=== PATIENT | female | born 1955 | race Caucasian/White ===

== ENCOUNTER 2017-02-03 21:40 | Emergency (ER) | payer OTHER ==
[~2017-02-03] VITALS: Ht 160 cm; Wt 78.2 kg
[~2017-02-03 21:40] MED LIST: COUM2TAB PO; FERR324T4 PO; LORA-392 PO; PROZ20CA11 PO; RIVA20 PO; Z.0.NO CURRENT MEDS
[2017-02-03 21:51] VITALS: PULSE 71; RESP 20; TEMP 97.8; O2SAT 97
[2017-02-03] MEDS ORDERED: VENTAER INH (22:01)
[2017-02-03] MEDS ORDERED: XARE20TA PO (22:01)
[2017-02-03] MEDS ORDERED: HYDR-2376 PO (22:01)
[2017-02-03] MEDS ORDERED: UMEC1AER INH (22:01)
[2017-02-03] MEDS ORDERED: PROP10TA6 PO (22:01)
[2017-02-03] MEDS ORDERED: LURA40 PO (22:01)
--- NOTE | 2017-02-03 22:29 | PD ---
HPI Chief Complaint: Hypertension Time Seen by Provider: 22:03 Travel History International Travel<30 days: No Contact w/Intl Traveler<30days: No Traveled to known affect area: No History of Present Illness HPI 61-year-old female arrives complaining of hypertension. She took her blood pressure at home that was about 170/90. She called the [employer] nurse and she is advised to come to the ER. Patient also had vague visual/changes including black spots which resolved prior to ER arrival. No diplopia. No fever. She denies no history of hypertension and takes no antihypertensive agent. PFSH Past Medical History Hx Anticoagulant Therapy: Yes Blood Disorders: No Bipolar Disorder: Yes Anxiety: Yes Depression: Yes Genitourinary: Yes Headaches: Yes Immune Disorder: No Kidney Stones: Yes Psychiatric: Yes Respiratory: Yes Past Surgical History Abdominal Surgery: Yes (CHOLY) AICD: No Section: Yes (x6) Cholecystectomy: Yes Genitourinary Surgery: Yes (BLADDER PROLAPSE) Hysterectomy: Yes Pacemaker: No Tonsillectomy: Yes Other Surgery: Yes (Bladder prolapse repair) Social History Alcohol Use: No Tobacco Use: Yes (1.5 PPD) Substance Use: No Allergies-Medications (Allergen,Severity, Reaction): Coded Allergies: Sulfa (Verified Allergy, Intermediate, 08/26/16) "sick" Reported Meds & Prescriptions Reported Meds & Active Scripts Active Reported Hydrocodone-Acetaminophen 7.5-300 Mg Tab 1 Tab PO Q6H PRN Latuda (Lurasidone) 40 Mg Tab 40 Mg PO DAILY Ventolin Hfa 18 GM Inh (Albuterol Sulfate) 90 Mcg/Act Aer 2 Puff INH Q6H PRN Anoro Ellipta Inh (Umeclidinium/Vilanterol) 62.5-25 Mcg/Act Aero 1 Puff INH DAILY Propranolol (Propranolol HCl) 10 Mg Tab 10 Mg PO DAILY Xarelto (Rivaroxaban) 20 Mg Tab 20 Mg PO DAILY Ativan (Lorazepam) 0.5 Mg Tab 1-2 Tab PO Q6HPRN Review of Systems Except as stated in HPI: all other systems reviewed are Neg General / Constitutional: No: Fever Physical Exam Narrative GENERAL: Well-nourished well-developed 61-year-old female no acute distress SKIN: Warm and dry. HEAD: Atraumatic. Normocephalic. EYES: Pupils equal and round. No scleral icterus. No injection or drainage. ENT: No nasal bleeding or discharge. Mucous membranes pink and moist. NECK: Trachea midline. No JVD. CARDIOVASCULAR: Regular rate and rhythm. RESPIRATORY: No accessory muscle use. Clear to auscultation. Breath sounds equal bilaterally. GASTROINTESTINAL: Abdomen soft, non-tender, nondistended. Hepatic and splenic margins not palpable. MUSCULOSKELETAL: Extremities without clubbing, cyanosis, or edema. No obvious deformities. NEUROLOGICAL: Awake and alert. No obvious cranial nerve deficits. Motor grossly within normal limits. Five out of 5 muscle strength in the arms and legs. Normal speech. PSYCHIATRIC: Appropriate mood and affect; insight and judgment normal. Data Data Last Documented VS Vital Signs Date Time Temp Pulse Resp B/P Pulse Ox O2 Delivery O2 Flow Rate FiO2 02/03/17 21:51 97.8 71 20 97 MDM Medical Decision Making Medical Screen Exam Complete: Yes Emergency Medical Condition: Yes Differential Diagnosis Hypertensive emergency, hypertensive urgency, medication noncompliance, anxiety Narrative Course The patient is asymptomatic in the ER. Her blood pressure is within acceptable range. Follow-up with primary care provider. Diagnosis Primary Impression: HTN (hypertension) Qualified Code: I15.9 - Secondary hypertension Referrals: DR VENTURA 2 days Additional Instructions: You have a choice when it comes to health care, and we are glad that you chose [facility]. Hopefully, we have met your expectations on today's visit. You are welcome to return to [facility] at any time, as we are committed to meeting the health care needs of our community. Med/Other Pt SpecificInfo: No Change to Meds Disposition: 01 DISCHARGE HOME Condition: Stable Rodney Zuniga MD Feb 03, 2017 22:29
== END 2017-02-03 22:50 | disposition home or self-care (01) ==
LOC: NEPC 21:40
DX: I10 Essential (primary) hypertension (principal); F17.210 Nicotine dependence, cigarettes, uncomplicated; Z79.01 Long term (current) use of anticoagulants
CPT/HCPCS: 99284

== ENCOUNTER 2017-10-14 08:37 | Emergency (ER) | payer OTHER ==
[~2017-10-14] VITALS: Ht 170.2 cm; Wt 78.0 kg
[~2017-10-14 08:37] MED LIST changes: -COUM2TAB PO; -FERR324T4 PO; +HYDR-2376 PO; +LURA40 PO; +PROP10TA6 PO; -PROZ20CA11 PO; -RIVA20 PO; +UMEC1AER INH; +VENTAER INH; +XARE20TA PO; -Z.0.NO CURRENT MEDS
[2017-10-14 08:45] VITALS: BP 133/82; PULSE 98; RESP 18; TEMP 98; O2SAT 100
[2017-10-14] MEDS ORDERED: OMEP20TA93 PO (08:51)
[2017-10-14] MEDS ORDERED: ONDA8TAB7 PO (08:51)
[2017-10-14] MEDS ORDERED: LITH150C PO (08:51)
[2017-10-14] MEDS ORDERED: SODIUM CHLORIDE 0.9% FLUSH 10 ML FLUSH IV FLUSH PRN (09:00)
[2017-10-14] MEDS ORDERED: LIDOCAINE 2% JELLY 30 ML TUBE TOPICAL ONE (09:00)
--- NOTE | 2017-10-14 09:01 | PD ---
HPI Chief Complaint: GI Complaint Time Seen by Provider: 08:52 Travel History International Travel<30 days: No Contact w/Intl Traveler<30days: No Traveled to known affect area: No History of Present Illness HPI 62-year-old female complains of abdominal pain, rectal pain and rectal bleeding. Patient states the symptoms started yesterday. Patient states the abdominal pain is cramping pain diffuse over the abdomen. Patient denies any pain radiation. Patient started having severe rectal pain yesterday and the rectal pain got worse this morning. Patient states that she started having rectal bleeding yesterday and the bleeding is worse this morning. Patient states that she has been constipated recently. Patient states that she has been taking oral laxative with some relief of the constipation. Patient denies any headache. Patient denies any chest pain or shortness of breath. Patient denies any dysuria or frequency. Patient denies any fever chills. Patient has history of PE and on Xarelto. Patient denies a history of hypertension, diabetes, hyperlipidemia. Patient is a smoker. On a scale of 1-10 the pain is a 10. Patient status post hysterectomy, cholecystectomy. PFSH Past Medical History Hx Anticoagulant Therapy: Yes Blood Disorders: No Bipolar Disorder: Yes Anxiety: Yes Depression: Yes Diminished Hearing: No Genitourinary: Yes Headaches: Yes Immune Disorder: No Kidney Stones: Yes Psychiatric: Yes Respiratory: Yes Influenza Vaccination: Yes Past Surgical History Abdominal Surgery: Yes (CHOLY) AICD: No Section: Yes (x6) Cholecystectomy: Yes Genitourinary Surgery: Yes (BLADDER PROLAPSE) Hysterectomy: Yes Pacemaker: No Tonsillectomy: Yes Other Surgery: Yes (Bladder prolapse repair) Social History Alcohol Use: No Tobacco Use: Yes (1.5 PPD) Substance Use: No Allergies-Medications (Allergen,Severity, Reaction): Coded Allergies: Sulfa (Sulfonamide Antibiotics) (Unverified Allergy, Intermediate, ) "sick" Reported Meds & Prescriptions Reported Meds & Active Scripts Active Reported Omeprazole 20 Mg Tab 20 Mg PO DAILY Ondansetron (Ondansetron HCl) 8 Mg Tab 8 Mg PO BID [place] Carbonate 150 Mg Cap 150 Mg PO BID Ventolin Hfa 18 GM Inh (Albuterol Sulfate) 90 Mcg/Act Aer 2 Puff INH Q6H PRN Anoro Ellipta Inh (Umeclidinium/Vilanterol) 62.5-25 Mcg/Act Aero 1 Puff INH DAILY Propranolol (Propranolol HCl) 10 Mg Tab 10 Mg PO DAILY Xarelto (Rivaroxaban) 20 Mg Tab 20 Mg PO DAILY Review of Systems General / Constitutional: No: Fever Eyes: No: Visual changes HENT: No: Headaches Cardiovascular: No: Chest Pain or Discomfort Respiratory: No: Shortness of Breath Gastrointestinal: Positive: Abdominal Pain, Hematochezia Genitourinary: No: Dysuria Musculoskeletal: No: Pain Skin: No Rash Neurologic: No: Weakness Psychiatric: No: Depression Endocrine: No: Polydipsia Hematologic/Lymphatic: No: Easy Bruising Physical Exam Narrative GENERAL: Well-nourished, well-developed patient. SKIN: Focused skin assessment warm/dry. HEAD: Normocephalic. EYES: No scleral icterus. No injection or drainage. NECK: Supple, trachea midline. No JVD or lymphadenopathy. CARDIOVASCULAR: Regular rate and rhythm without murmurs, gallops, or rubs. RESPIRATORY: Breath sounds equal bilaterally. No accessory muscle use. GASTROINTESTINAL: Abdomen soft, nondistended. Mild diffuse tenderness over the abdomen. No rebound tenderness. No mass. Rectal exam shows small amount of reddish stool, no active bleeding. Large external hemorrhoid noted. Hemorrhoids is with severe tenderness on palpation. No evidence of thrombosis. Hemoccult positive. MUSCULOSKELETAL: No cyanosis, or edema. BACK: Nontender without obvious deformity. No CVA tenderness. Neurologic exam normal. Data Data Last Documented VS Vital Signs Date Time Temp Pulse Resp B/P (MAP) Pulse Ox O2 Delivery O2 Flow Rate FiO2 10/14/17 10:49 16 10/14/17 09:22 99 Room Air 10/14/17 08:45 98.0 98 133/82 (99) Orders Orders Complete Blood Count With Diff (10/14/17 08:53) Comprehensive Metabolic Panel (10/14/17 08:53) Lipase (10/14/17 08:53) Prothrombin Time / Inr (Pt) (10/14/17 08:53) Act Partial Throm Time (Ptt) (10/14/17 08:53) Urinalysis - C+S If Indicated (10/14/17 08:53) Ct Abd/Pel W Iv Contrast(Rout) (10/14/17 08:53) Iv Access Insert/Monitor (10/14/17 08:53) Ecg Monitoring (10/14/17 08:53) Oximetry (10/14/17 08:53) Sodium Chloride 0.9% Flush (Ns Flush) (10/14/17 09:00) Sodium Chlor 0.9% 1000 Ml Inj (Ns 1000 M (10/14/17 09:15) Morphine Inj (Morphine Inj) (10/14/17 09:15) Ondansetron Inj (Zofran Inj) (10/14/17 09:15) Lidocaine 2% Jelly (Xylocaine 2% Jelly) (10/14/17 09:30) Iohexol 350 Inj (Omnipaque 350 Inj) (10/14/17 10:21) Labs Laboratory Tests Test 10/14/17 09:00 10/14/17 10:00 White Blood Count 11.1 TH/MM3 Red Blood Count 4.89 MIL/MM3 Hemoglobin 15.3 GM/DL Hematocrit 45.2 % Mean Corpuscular Volume 92.5 FL Mean Corpuscular Hemoglobin 31.3 PG Mean Corpuscular Hemoglobin Concent 33.8 % Red Cell Distribution Width 13.8 % Platelet Count 173 TH/MM3 Mean Platelet Volume 10.2 FL Neutrophils (%) (Auto) 81.8 % Lymphocytes (%) (Auto) 10.0 % Monocytes (%) (Auto) 6.5 % Eosinophils (%) (Auto) 0.9 % Basophils (%) (Auto) 0.8 % Neutrophils # (Auto) 9.1 TH/MM3 Lymphocytes # (Auto) 1.1 TH/MM3 Monocytes # (Auto) 0.7 TH/MM3 Eosinophils # (Auto) 0.1 TH/MM3 Basophils # (Auto) 0.1 TH/MM3 CBC Comment DIFF FINAL Differential Comment Prothrombin Time 16.6 SEC Prothromb Time International Ratio 1.5 RATIO Activated Partial Thromboplast Time 45.0 SEC Blood Urea Nitrogen 13 MG/DL Creatinine 0.94 MG/DL Random Glucose 94 MG/DL Total Protein 7.6 GM/DL Albumin 3.6 GM/DL Calcium Level 9.2 MG/DL Alkaline Phosphatase 107 U/L Aspartate Amino Transf (AST/SGOT) 18 U/L Alanine Aminotransferase (ALT/SGPT) 17 U/L Total Bilirubin 0.6 MG/DL Sodium Level 138 MEQ/L Potassium Level 3.8 MEQ/L Chloride Level 108 MEQ/L Carbon Dioxide Level 25.7 MEQ/L Anion Gap 4 MEQ/L Estimat Glomerular Filtration Rate 61 ML/MIN Lipase 145 U/L Urine Color LIGHT-YELLOW Urine Turbidity CLEAR Urine pH 7.0 Urine Specific [place] 1.005 Urine Protein NEG mg/dL Urine Glucose (UA) NEG mg/dL Urine Ketones NEG mg/dL Urine Occult Blood MOD Urine Nitrite NEG Urine Bilirubin NEG Urine Urobilinogen LESS THAN 2.0 MG/DL Urine Leukocyte Esterase NEG Urine RBC 0-3 /hpf Urine WBC 0-2 /hpf Urine Squamous Epithelial Cells 0-5 /hpf Urine Bacteria RARE /hpf Microscopic Urinalysis Comment CULT NOT INDICATED MDM Medical Decision Making Medical Screen Exam Complete: Yes Emergency Medical Condition: Yes Interpretation(s) Last Impressions Abdomen/Pelvis CT 10/14/17 0853 Signed Impressions: Service Date/Time: Sunday, October 14, 2017 10:02 - CONCLUSION: 1. No obstruction, inflammatory changes or other acute abnormality demonstrated. 2. A few very small, benign appearing cysts of both kidneys. There are couple tiny nonobstructing stones of the left upper pole. 3. Aortoiliac atherosclerosis. No aneurysm. Hector Song MD 10:50 AM. CBC within normal limit. CMP within normal limit. INR 1.5. UA negative. Differential Diagnosis Differential diagnosis including upper GI versus lower GI bleed, hemorrhoidal bleed, colitis. Narrative Course 62-year-old female with abdominal pain, rectal pain, rectal bleeding. Examination reveals large external hemorrhoids with Hemoccult positive stool. HemaPrompt Point of Care Internal Pos. & Neg. Controls: Passed Fecal Specimen Occult Blood: Positive Diagnosis Primary Impression: Bleeding external hemorrhoids Patient Instructions: General Instructions Additional Instructions: Take medications as directed. Stool softener as directed. Sitz bath as directed. Follow-up with colorectal surgeon. Return if persistent bleeding or worse. Med/Other Pt SpecificInfo: Prescription(s) given Scripts Hydrocortisone Rectal (Anusol-Hc Rectal) 2.5% Cream 1 APPLIC RECTAL Q4-6H Y for ITCHING/INFLAMMATION, #30 GM 0 Refills Prov: Dawson Chow MD 10/14/17 Acetaminophen-Codeine (Tylenol-Codeine #3) 300-30 mg Tab 1-2 TAB PO Q6H Y for PAIN, #20 TAB 0 Refills Prov: Dawson Chow MD 10/14/17 Disposition: 01 DISCHARGE HOME Condition: Stable Dwason Chow MD Oct 14, 2017 09:01
[2017-10-14] MEDS ORDERED: MORPHINE SULFATE 2 MG/ML INJ IV PUSH ONE (09:15)
[2017-10-14] MEDS ORDERED: ONDANSETRON HCL 4 MG/2 ML VIAL IV PUSH ONE (09:15)
[2017-10-14] MEDS ORDERED: SODIUM CHLOR 0.9% 1000 ML INJ 1,000 ML IV SCH (09:15)
[2017-10-14 09:22] VITALS: RESP 16; O2SAT 99
[2017-10-14 09:25] LABS: AUTOMATED NEUTROPHIL # 9.1 TH/MM3 (1.8-7.7); BASOPHIL # 0.1 TH/MM3 (0-0.2); BASOPHIL % 0.8 % (0.0-2.0); EOSINOPHIL # 0.1 TH/MM3 (0-0.4); EOSINOPHIL % 0.9 % (0.0-4.0); HEMATOCRIT 45.2 % (35.0-46.0); HEMO FLAGS DIFF FINAL; LYMPHOCYTE # 1.1 TH/MM3 (1.0-4.8); MEAN CELL VOLUME 92.5 FL (80.0-100.0); MEAN CORPUSCULAR HEMOGLOBIN 31.3 PG (27.0-34.0); MEAN CORPUSCULAR HGB CONC 33.8 % (32.0-36.0); MONO % 6.5 % (0.0-8.0); NEUT % 81.8 % (16.0-70.0); PLATELET COUNT 173 TH/MM3 (150-450); RED BLOOD COUNT 4.89 MIL/MM3 (4.00-5.30); RED CELL DISTRIBUTION WIDTH 13.8 % (11.6-17.2); WHITE BLOOD COUNT 11.1 TH/MM3 (4.0-11.0)
[2017-10-14] MEDS ORDERED: LIDOCAINE 2% JELLY 5 ML TUBE TOPICAL ONE (09:30)
[2017-10-14 09:32] LABS: INTERNATIONAL NORMALIZED RATIO 1.5 RATIO; PROTHROMBIN TIME - PATIENT 16.6 SEC (9.8-11.6)
[2017-10-14 09:56] LABS: ANION GAP 4 MEQ/L (5-15); AST (GOT) 18 U/L (15-37); BICARBONATE 25.7 MEQ/L (21.0-32.0); BLOOD UREA NITROGEN 13 MG/DL (7-18); CHLORIDE 108 MEQ/L (98-107); GLOMERULAR FILTRATION RATE 61 ML/MIN (>89); POTASSIUM 3.8 MEQ/L (3.5-5.1); SODIUM (NA) 138 MEQ/L (136-145)
[2017-10-14 09:58] LABS: ALT (GPT) 17 U/L (10-53)
[2017-10-14 10:00] LABS: ALKALINE PHOSPHATASE 107 U/L (45-117); TOTAL BILIRUBIN ADULT 0.6 MG/DL (0.2-1.0)
[2017-10-14 10:17] LABS: BLOOD, URINE MOD (NEG); GLUCOSE,URINE NEG (NEG); KETONE, URINE NEG (NEG); NITRITE,URINE NEG (NEG); URINE COLOR LIGHT-YELLOW (YELLW/STRAW)
[2017-10-14] MEDS ORDERED: IOHEXOL 350 MG/ML 10 ML VIAL (for RAD DIAG) IVCONTRAST ONE (10:21)
[2017-10-14 10:36] LABS: RBC, URINE 0-3 /hpf (0-3); WBC, URINE 0-2 /hpf (0-5)
[2017-10-14 10:37] LABS: BACTERIA, URINE RARE /hpf; COMMENT (UR) CULT NOT INDICATED; CULTURE IF INDICATED CULT NOT INDICATED; SQUAMOUS EPITHELIAL CELL URINE 0-5 /hpf (0-5)
--- NOTE | 2017-10-14 10:39 | RADRPT ---
EXAM DATE/TIME: 10/14/2017 10:02 [facility] COMPARISON: No previous studies available for comparison. INDICATIONS : Diffuse abdomen pain today. IV CONTRAST: 72 cc Omnipaque 350 (iohexol) IV ORAL CONTRAST: No oral contrast ingested. RADIATION DOSE: 6.64 CTDIvol (mGy) MEDICAL HISTORY : bladder prolapse SURGICAL HISTORY : Hysterectomy. Cholecystectomy. ENCOUNTER: Initial ACUITY: 1 day PAIN SCALE: 8/10 LOCATION: Bilateral abdomen TECHNIQUE: Volumetric scanning of the abdomen and pelvis was performed. Using automated exposure control and ad justment of the mA and/or kV according to patient size, radiation dose was kept as low as reasonably achievable to obtain optimal diagnostic quality images. DICOM format image data is available electro nically for review and comparison. FINDINGS: LOWER LUNGS: The visualized lower lungs are clear. LIVER: Homogeneous density without lesion. There is no dilation of the biliary tree. Previous cholecystecto my. SPLEEN: Normal size without lesion. PANCREAS: Within normal limits. KIDNEYS: A few scattered subcentimeter cysts of both kidneys. Also mild patchy cortical thinning/scarring. Two 2 mm stones are seen of the left upper pole. No hydronephrosis. ADRENAL GLANDS: Within normal limits. VASCULAR: There is atherosclerosis of the abdominal aorta and iliac arteries. No aneurysm. BOWEL/MESENTERY: The stomach, small bowel, and colon demonstrate no acute abnormality. There is no free intraperitone al air or fluid. ABDOMINAL WALL: Within normal limits. RETROPERITONEUM: There is no lymphadenopathy. BLADDER: No wall thickening or mass. REPRODUCTIVE: Previous hysterectomy. No mass. No free fluid. INGUINAL: There is no lymphadenopathy or hernia. MUSCULOSKELETAL: No acute bony abnormality demonstrated. CONCLUSION: 1. No obstruction, inflammatory changes or other acute abnormality demonstrated. 2. A few very small, benign appearing cysts of both kidneys. There are couple tiny nonobstructing sto [place] of the left upper pole. 3. Aortoiliac atherosclerosis. No aneurysm. Hector Song MD on October 14, 2017 at 10:33 Board Certified Radiologist. This report was verified electronically.
[2017-10-14 10:49] VITALS: RESP 16
[2017-10-14] MEDS ORDERED: HYDR2.5%T RECTAL (10:58)
[2017-10-14] MEDS ORDERED: TYLETAB34 PO (10:58)
== END 2017-10-14 11:10 | disposition home or self-care (01) ==
LOC: NEPC 08:37
DX: K64.4 Residual hemorrhoidal skin tags (principal); N28.1 Cyst of kidney, acquired; F31.9 Bipolar disorder, unspecified; F41.9 Anxiety disorder, unspecified; F17.200 Nicotine dependence, unspecified, uncomplicated; Z87.442 Personal history of urinary calculi; Z79.899 Other long term (current) drug therapy; Z88.2 Allergy status to sulfonamides
CPT/HCPCS: 74177; 80053; 81001; 83690; 85025; 85610; 85730; 96374; 96375; 99285; J2270; J2405; J7030; Q9967

== ENCOUNTER 2018-01-03 19:18 | Emergency (ER) | payer OTHER ==
[~2018-01-03] VITALS: Ht 161.3 cm; Wt 68.6 kg
[~2018-01-03 19:18] MED LIST changes: -HYDR-2376 PO; +HYDR2.5%T RECTAL; +LITH150C PO; -LORA-392 PO; -LURA40 PO; +OMEP20TA93 PO; +ONDA8TAB7 PO; +TYLETAB34 PO
[2018-01-03 19:54] VITALS: BP 173/69; PULSE 81; RESP 16; TEMP 98.4; O2SAT 97
[2018-01-03] MEDS ORDERED: oxyCODONE/ACETAMINOPHEN 5 MG/325 MG TAB PO ONE (21:45)
--- NOTE | 2018-01-03 22:05 | PD ---
HPI Chief Complaint: Fall Time Seen by Provider: 21:22 Travel History International Travel<30 days: No Contact w/Intl Traveler<30days: No Traveled to known affect area: No History of Present Illness HPI Patient is a 62-year-old female presenting to the emergency department for evaluation of right leg pain. Patient states that she fell at approximately 6 PM this evening. She normally ambulates with a walker but it is too small to use at home so she holds onto the day. She states that her right leg just "gave out". She reports that she sat there for approximately an hour and was able to get herself off of the floor. She stated that she fell back onto her buttocks, there was no head injury, no loss of consciousness. Patient states that she has chronic pain in that leg and has decreased sensation on the lateral aspect. This is been ongoing for the last 8 years. She denies any shortness of breath, chest pain, dizziness prior to the fall. Reports her pain is 8 out of 10, she states it is sore. There are no alleviating factors, pain is somewhat exacerbated with movement. Symptom onset was sudden. PFSH Past Medical History Hx Anticoagulant Therapy: Yes Blood Disorders: No Bipolar Disorder: Yes Anxiety: Yes Depression: Yes Diminished Hearing: No Genitourinary: Yes Headaches: Yes Immune Disorder: No Kidney Stones: Yes Psychiatric: Yes Respiratory: Yes Past Surgical History Abdominal Surgery: Yes (CHOLY) AICD: No Section: Yes (x6) Cholecystectomy: Yes Genitourinary Surgery: Yes (BLADDER PROLAPSE) Hysterectomy: Yes Pacemaker: No Tonsillectomy: Yes Other Surgery: Yes (Bladder prolapse repair) Social History Alcohol Use: No Tobacco Use: Yes (1.5 PPD) Substance Use: No Allergies-Medications (Allergen,Severity, Reaction): Coded Allergies: Sulfa (Sulfonamide Antibiotics) (Unverified Allergy, Intermediate, 01/03/18) "sick" Reported Meds & Prescriptions Reported Meds & Active Scripts Active Anusol-Hc Rectal (Hydrocortisone Rectal) 2.5% Cream 1 Applic RECTAL Q4-6H PRN Reported Omeprazole 20 Mg Tab 20 Mg PO DAILY Ondansetron (Ondansetron HCl) 8 Mg Tab 8 Mg PO BID [place] Carbonate 150 Mg Cap 150 Mg PO BID Ventolin Hfa 18 GM Inh (Albuterol Sulfate) 90 Mcg/Act Aer 2 Puff INH Q6H PRN Anoro Ellipta Inh (Umeclidinium/Vilanterol) 62.5-25 Mcg/Act Aero 1 Puff INH DAILY Propranolol (Propranolol HCl) 10 Mg Tab 10 Mg PO DAILY Xarelto (Rivaroxaban) 20 Mg Tab 20 Mg PO DAILY Review of Systems Except as stated in HPI: all other systems reviewed are Neg Musculoskeletal: Positive: Myalgias, Arthralgias, Pain, No: Limited ROM Physical Exam Narrative GENERAL: Thin, well-developed, alert female. Presenting in no acute distress, appears older than stated age. SKIN: Warm and dry. No bruising. HEAD: Atraumatic. Normocephalic. EYES: Pupils equal and round. No scleral icterus. No injection or drainage. ENT: No nasal bleeding or discharge. Mucous membranes pink and moist. NECK: Trachea midline. No JVD. CARDIOVASCULAR: Regular rate and rhythm. RESPIRATORY: No accessory muscle use. Clear to auscultation. Breath sounds equal bilaterally. GASTROINTESTINAL: Abdomen soft, non-tender, nondistended. Hepatic and splenic margins not palpable. MUSCULOSKELETAL: Extremities without clubbing, cyanosis, or edema. No obvious deformities. NEUROLOGICAL: Awake and alert. No obvious cranial nerve deficits. Motor grossly within normal limits. 5 out of 5 muscle strength in the bilateral arms and left legs. Right leg 4/5. normal speech. PSYCHIATRIC: Appropriate mood and affect; insight and judgment normal. Data Data Last Documented VS Vital Signs Date Time Temp Pulse Resp B/P (MAP) Pulse Ox O2 Delivery O2 Flow Rate FiO2 01/03/18 19:54 98.4 81 16 173/69 (103) 97 Room Air Orders Orders Hip, Uni(Ap&Lat) W Ap Pelvis (01/03/18 ) Knee, Complete (4vws) (01/03/18 ) Spine, Lumbar - Ltd (Ap & Lat) (01/03/18 ) Oxycodone-Acetamin 5-325 Mg (Percocet (01/03/18 21:45) MDM Medical Decision Making Medical Screen Exam Complete: Yes Emergency Medical Condition: Yes Interpretation(s) Vital Signs Date Time Temp Pulse Resp B/P (MAP) Pulse Ox O2 Delivery O2 Flow Rate FiO2 01/03/18 19:54 98.4 81 16 173/69 (103) 97 Room Air Differential Diagnosis Muscle strain versus muscle spasm versus discogenic pain versus fracture versus other Narrative Course Patient is a 62-year-old female that presented to emergency department for evaluation after a mechanical fall this evening. Patient is neurologically intact, pink, vital signs are stable. Patient is on narcotic pain medication for chronic back pain. She also ambulates with a walker but is unable to use in her home because space is limited in the walker does not fit. She ambulates holding onto the day. Additionally patient has COPD and is a chronic tobacco user still. X-ray of the right hip, right knee are unremarkable. X-ray of the lumbar spine shows degenerative changes knee. Patient was given a Percocet for pain and reports improvement. A home health [id number] was completed for physical therapy to evaluate and treat. Patient was encouraged to follow-up with her primary doctor, limit narcotic use as much as possible to decrease risk for falls. She will be given a prescription for cane which may help her ambulate in her home. She verbalized understanding of instructions. Patient is stable for discharge. Diagnosis Primary Impression: Falls Qualified Codes: W19.XXXA - Unspecified fall, initial encounter Additional Impressions: Impaired gait and mobility COPD (chronic obstructive pulmonary disease) Qualified Codes: J44.9 - Chronic obstructive pulmonary disease, unspecified Leg pain, lateral Qualified Codes: M79.604 - Pain in right leg Referrals: Primary Care Physician call for appointment Patient Instructions: Arthritis (ED), Fall Prevention for Children (GEN), Leg Pain (ED), General Instructions Additional Instructions: Home health referral has been made for you Follow-up with your primary doctor Use cane to ambulate Return to emergency department for any new or worsening symptoms Med/Other Pt SpecificInfo: Prescription(s) given, No Change to Meds Scripts Quad Cane/Large Low Base (Quad Cane/Large Low Base) 1 Mis Mis EA .XX DIRECTED, #1 Prov: Jennifer Martinez 01/03/18 Disposition: 01 DISCHARGE HOME Condition: Stable Jennifer Martinez Jan 03, 2018 22:05
--- NOTE | 2018-01-03 22:14 | RADRPT ---
EXAM DATE/TIME: 01/03/2018 21:56 [facility] COMPARISON: No previous studies available for comparison. INDICATIONS : Fall. Pain in right leg. MEDICAL HISTORY : Bladder prolapse SURGICAL HISTORY : Hysterectomy. Cholecystectomy. ENCOUNTER: Initial ACUITY: 1 day PAIN SCORE: 6/10 LOCATION: Right Knee FINDINGS: Four view examination of the right knee demonstrates no evidence of fracture or dislocation. Bony mi neralization is normal. The articular surfaces are intact. The suprapatellar soft tissues have a no rmal configuration. CONCLUSION: Intact right knee. Hector Song MD on January 03, 2018 at 22:12 Board Certified Radiologist. This report was verified electronically.
--- NOTE | 2018-01-03 22:14 | RADRPT ---
EXAM DATE/TIME: 01/03/2018 21:53 [facility] COMPARISON: No previous studies available for comparison. INDICATIONS : Fall. Pain in right leg. MEDICAL HISTORY : bladder prolapse SURGICAL HISTORY : Hysterectomy. Cholecystectomy. ENCOUNTER: Initial ACUITY: 1 day PAIN SCORE: 8/10 LOCATION: Right Hip FINDINGS: Examination of the right hip was performed with AP Pelvis. The primary and secondary trabecular wil aydin of the femoral neck is intact. The hip joint is of normal width without significant sclerosis or bony hypertrophy. The acetabulum is grossly intact. CONCLUSION: Intact right hip. Hector Song MD on January 03, 2018 at 22:11 Board Certified Radiologist. This report was verified electronically.
--- NOTE | 2018-01-03 22:15 | RADRPT ---
EXAM DATE/TIME: 01/03/2018 21:58 [facility] COMPARISON: No previous studies available for comparison. INDICATIONS : Fall. Pain in right leg. MEDICAL HISTORY : Bladder prolapse SURGICAL HISTORY : Cholecystectomy. Hysterectomy. ENCOUNTER: Initial ACUITY: 1 day PAIN SCORE: 6/10 LOCATION: Lower back FINDINGS: No fracture or subluxation of the lumbar spine. Vertebral bodies have normal height. Mild to moderate disc space narrowing and moderate bilateral facet osteoarthritis seen at L4/L5 and L 5/S1. Similar but mild changes are seen at L3/L4. CONCLUSION: Mild to moderate mid and lower lumbar degenerative changes as above. There is no fracture or subluxat ion. Hector Song MD on January 03, 2018 at 22:12 Board Certified Radiologist. This report was verified electronically.
--- NOTE | 2018-01-03 23:07 | HHI.FF ---
Face to Face Verification Diagnosis: (1) COPD (chronic obstructive pulmonary disease) (2) Impaired gait and mobility (3) Falls (4) Arthritis Physical Therapy Order: Evaluate and Treat, Improve ambulation, Strength and gait training I have seen patient Genevieve Bundy on 01/03/18. My clinical findings support the need for the requested home health care services because: Ltd mobility - disease progression Deconditioned w/ increased weakness High risk of falls I certify that my clinical findings support that this patient is homebound because: Hx COPD- exertion dyspnea/weakness Unsteady gait/balance Jennifer Martinez Jan 03, 2018 23:07
[2018-01-03] MEDS ORDERED: QUAD CANE/LARGE1 MI5 (23:26)
[2018-01-04 09:00] VITALS: BP 162/82; PULSE 80; RESP 18; O2SAT 96
[2018-01-04 10:15] VITALS: BP 168/72
== END 2018-01-04 10:18 | disposition home or self-care (01) ==
LOC: NEPD 19:18
DX: M79.604 Pain in right leg (principal); R26.9 Unspecified abnormalities of gait and mobility; J44.9 Chronic obstructive pulmonary disease, unspecified; F17.200 Nicotine dependence, unspecified, uncomplicated; W19.XXXA Unspecified fall, initial encounter
CPT/HCPCS: 72100; 73502; 73564; 99284

== ENCOUNTER 2018-04-01 09:23 | Emergency (ER) | payer OTHER, MEDICAID ==
[2018-04-01] MEDS ORDERED: SODIUM CHLORIDE 0.9% FLUSH 10 ML FLUSH IV FLUSH (10:15)
[2018-04-01] MEDS: MORPHINE SULFATE 4 MG/ML INJ IV PUSH (11:06)
[2018-04-01] MEDS: SODIUM CHLOR 0.9% 1000 ML INJ 1,000 ML IV (11:06)
[2018-04-01 11:15] LABS: AUTOMATED NEUTROPHIL # 5.7 TH/MM3 (1.8-7.7); BACTERIA, URINE RARE /hpf; BASOPHIL # 0.1 TH/MM3 (0-0.2); BILIRUBIN, URINE NEG (NEG); BLOOD, URINE NEG (NEG); COMMENT (UR) CULT NOT INDICATED; CULTURE IF INDICATED CULT NOT INDICATED; EOSINOPHIL # 0.1 TH/MM3 (0-0.4); EOSINOPHIL % 1.3 % (0.0-4.0); GLUCOSE,URINE NEG (NEG); HEMATOCRIT 43.1 % (35.0-46.0); HEMO FLAGS DIFF FINAL; HEMOGLOBIN 14.8 GM/DL (11.6-15.3); KETONE, URINE NEG (NEG); LYMPH % 15.3 % (9.0-44.0); LYMPHOCYTE # 1.2 TH/MM3 (1.0-4.8); MEAN CELL VOLUME 90.8 FL (80.0-100.0); MEAN CORPUSCULAR HEMOGLOBIN 31.1 PG (27.0-34.0); MEAN CORPUSCULAR HGB CONC 34.3 % (32.0-36.0); MONO % 7.2 % (0.0-8.0); MONOCYTE # 0.5 TH/MM3 (0-0.9); MUCUS URINE FEW /lpf (OCC); NEUT % 75.2 % (16.0-70.0); NITRITE,URINE NEG (NEG); PH, URINE 6.5 (5.0-8.5); PLATELET COUNT 173 TH/MM3 (150-450); RED BLOOD COUNT 4.74 MIL/MM3 (4.00-5.30); SQUAMOUS EPITHELIAL CELL URINE 7 /hpf (0-5); URINE COLOR LIGHT-YELLOW (YELLW/STRAW); URINE LEUKOCYTE ESTERASE NEG (NEG); WHITE BLOOD COUNT 7.6 TH/MM3 (4.0-11.0)
[2018-04-01 11:35] LABS: ALKALINE PHOSPHATASE 97 U/L (45-117); TOTAL BILIRUBIN ADULT 0.5 MG/DL (0.2-1.0); TOTAL PROTEIN 7.5 GM/DL (6.4-8.2)
[2018-04-01 11:43] LABS: ALBUMIN 3.5 GM/DL (3.4-5.0); ALT (GPT) 16 U/L (10-53); ANION GAP 6 MEQ/L (5-15); AST (GOT) 30 U/L (15-37); BICARBONATE 26.6 MEQ/L (21.0-32.0); BLOOD UREA NITROGEN 11 MG/DL (7-18); CALCIUM 9.3 MG/DL (8.5-10.1); CHLORIDE 111 MEQ/L (98-107); CREATININE 0.85 MG/DL (0.50-1.00); GLOMERULAR FILTRATION RATE 68 ML/MIN (>89); GLUCOSE,RANDOM 81 MG/DL (74-106); LIPASE 124 U/L (73-393); POTASSIUM 4.9 MEQ/L (3.5-5.1); SODIUM (NA) 144 MEQ/L (136-145)
[2018-04-01] MEDS: IOHEXOL 350 MG/ML 10 ML VIAL (for RAD DIAG) IVCONTRAST (12:28)
== END 2018-04-01 14:52 | disposition home or self-care (01) ==
LOC: NEPD 09:23
DX: R10.31 Right lower quadrant pain (principal); K21.9 Gastro-esophageal reflux disease without esophagitis; F31.9 Bipolar disorder, unspecified; F17.210 Nicotine dependence, cigarettes, uncomplicated; Z86.718 Personal history of other venous thrombosis and embolism; Z86.711 Personal history of pulmonary embolism; Z87.442 Personal history of urinary calculi; Z88.2 Allergy status to sulfonamides; Z79.01 Long term (current) use of anticoagulants; Z79.899 Other long term (current) drug therapy
CPT/HCPCS: 74177; 80053; 81001; 83690; 85025; 96361; 96374; 99284-25